=== PATIENT | male | born 1955 | race American Indian/Alaskan Native ===

== ENCOUNTER 2021-04-30 12:11 | Emergency (ER) | payer MEDICARE ==
[2021-04-30 12:18] VITALS: BP 140/83
--- NOTE | 2021-04-30 16:21 | ED Elopement Review ---
ED Pt Elopement review - Results review Lab results: I was unable to locate patient. After 2 hours of searching, I suspect that patient eloped. Patient had normal vital signs. He had minor symptoms of cough for 1 week. No further action necessary. - Call Back decision Pt Call Back Decision: No action required
== END 2021-04-30 18:35 | disposition left against medical advice (07) ==
LOC: ED 12:11
DX: R05.9 Cough, unspecified (principal); Z53.21 Procedure and treatment not carried out due to patient leaving prior to being seen by health care provider